=== PATIENT | male | born 1965 | race Caucasian/White ===

== ENCOUNTER → 2017-10-25 | Outpatient (CLI) | payer BC ==
--- NOTE | 2017-10-25 10:44 | DIAGNOSTIC IMAGING REPORT ---
RIGHT CLAVICLE 2 VIEW HISTORY: RIGHT CLAVICLE PAIN AND COUGH COMPARISON: None. FINDINGS: No fractures within the right clavicle. Widening of the acromioclavicular joint consistent with a grade I separation. This is age indeterminate. Small ossific density adjacent to the distal clavicle is likely due to old trauma. Soft tissues are unremarkable. No radiopaque foreign bodies. IMPRESSION: 1. No acute fractures within the right clavicle. 2. Widening of the acromioclavicular joint consistent with a grade I separation. This is likely chronic. Electronically signed by: Matt Singh M.D. 10/25/2017 10:43 AM Dictated Date/Time: 10/25/2017 10:41 AM
--- NOTE | 2017-10-25 10:48 | DIAGNOSTIC IMAGING REPORT ---
CHEST 2 VIEWS ROUTINE HISTORY: 52 years-old Male RIGHT CLAVICLE PAIN AND COUGH acute right clavicular pain with cough COMPARISON: Right clavicle and right shoulder radiographs of same day TECHNIQUE: 2 views of the chest FINDINGS: Cardiomediastinal and hilar silhouettes are within normal limits. There is no pneumothorax, pleural effusion, focal airspace consolidation or overt pulmonary edema. 8 mm nodular opacities of the bilateral lung bases suggest probable nipple shadows. Degenerative changes of the shoulders and spine. IMPRESSION: 1. No acute processes of the chest. 2. 8 mm nodular opacities about the bilateral lung bases suggests nipple shadows. This could be confirmed with follow-up radiographs with nipple markers. The above report was generated using voice recognition software. It may contain grammatical, syntax or spelling errors. Electronically signed by: Aidan Rendon M.D. 10/25/2017 10:46 AM Dictated Date/Time: 10/25/2017 10:44 AM
== END | disposition home or self-care (01) ==
LOC: C.RDSM 10:31
PROVIDERS: ATTEND Family Medicine
DX: R22.1 Localized swelling, mass and lump, neck (principal); R19.8 Other specified symptoms and signs involving the digestive system and abdomen